=== PATIENT | female | born 1955 | race Two or more races ===

== ENCOUNTER 2016-10-22 07:23 | Inpatient (IN) | payer MEDICARE, MEDICAID ==
[2016-10-22] MEDS ORDERED: IV SET PRIMARY 1 EA INFUS.SET MC ONE (09:24)
[2016-10-22] MEDS ORDERED: IV LR 1000 ML 1,000 ML ONE (09:24)
[2016-10-22] MEDS ORDERED: NEEDLELESS EST SET LARGE BORE 1 EA INFUS.SET MC ONE (09:24)
[2016-10-22] MEDS ORDERED: SECONDARY IV SET 1 EA INFUS.SET MC ONE ×2 (09:24→18:29)
[2016-10-22] MEDS ORDERED: BACL10TA PO (10:25)
[2016-10-22] MEDS ORDERED: INSU100V27 SQ (10:25)
[2016-10-22] MEDS ORDERED: OXYC-128 PO (10:25)
[2016-10-22] MEDS ORDERED: METF500T4 PO (10:25)
[2016-10-22] MEDS ORDERED: LOSA50TA21 PO (10:25)
[2016-10-22] MEDS ORDERED: AMLO5TAB4 PO (10:25)
[2016-10-22] MEDS ORDERED: INSU3INS6 SUBCUT (10:25)
[2016-10-22] MEDS ORDERED: KETOROLAC TROMETHAMINE INJ 30 MG/ML VIAL ONE (10:42)
[2016-10-22] MEDS ORDERED: BUPIVACAINE MPF 0.5% W/EPI INJ 30 ML VIAL ONE (10:43)
[2016-10-22] MEDS ORDERED: BACITRACIN 50000 UNITS/VIAL ONE (10:43)
[2016-10-22] MEDS ORDERED: CEFAZOLIN SODIUM/DEXTROSE,ISO 50 ML IV ONE (10:46)
[2016-10-22] MEDS ORDERED: HYDROMORPHONE INJ 2 MG/ML DISP.SYRIN ONE ×2 (10:53→12:45)
[2016-10-22] MEDS ORDERED: FENTANYL PF 100MCG/2ML AMPUL ONE (10:53)
[2016-10-22] MEDS ORDERED: TRANEXAMIC ACID 3,000 MG in SODIUM CHLORIDE IRRIG SOLUTION 70 ML IR ONE ×2 (11:00→11:30)
[2016-10-22] MEDS ORDERED: IV 1/2NS 1000 ML 1,000 ML IV PRN (13:30)
[2016-10-22] MEDS ORDERED: COLACE 250 MG CAPSULE PO PRN (13:30)
[2016-10-22] MEDS ORDERED: SENOKOT 8.6 MG TABLET PO PRN (13:30)
[2016-10-22] MEDS ORDERED: ZOFRAN 4mg/2ML IV PRN (13:30)
[2016-10-22] MEDS ORDERED: HYDROMORPHONE 1 MG/1 ML DISP.SYRIN IV PRN (13:30)
[2016-10-22] MEDS ORDERED: TYLENOL 650 MG TABLET PO PRN (13:30)
[2016-10-22] MEDS ORDERED: DULCOLAX 10 MG/SUPP.RECT RC PRN (13:30)
[2016-10-22] MEDS ORDERED: AMBIEN 5 MG TABLET PO PRN (13:30)
[2016-10-22] MEDS ORDERED: HYDROCODONE/APAP 5/325MG 1 EACH TABLET PO PRN ×2 (13:30)
[2016-10-22] MEDS ORDERED: MAGNESIUM HYDROXIDE 30 ML UDC PO PRN (16:30)
[2016-10-22] MEDS ORDERED: CLONIDINE HCL 0.1 MG TABLET PO PRN (16:30)
[2016-10-22] MEDS ORDERED: MAG HYDROX/AL HYDROX/SIMETH 30 ML UDC PO PRN (16:30)
[2016-10-22] MEDS ORDERED: HYDROMORPHONE 1 MG/1 ML DISP.SYRIN SQ PRN (16:30)
[2016-10-22] MEDS ORDERED: BACLOFEN (10 MG) 10 MG TABLET PO PRN (16:30)
[2016-10-22] MEDS: DOCUSATE SODIUM 100 MG CAPSULE PO SCH (16:58)
[2016-10-22] MEDS ORDERED: DEXTROSE 50%-WATER 50 ML DISP.SYRIN IV PRN (17:30)
[2016-10-22] MEDS ORDERED: BLOOD SUGAR DIAGNOSTIC 1 EACH STRIP IN SCH (17:30)
[2016-10-22] MEDS: oxyCODONE IR immediate release 5 MG CAPSULE PO PRN (18:12)
[2016-10-22] MEDS: BLOOD SUGAR DIAGNOSTIC 1 EACH STRIP VI SCH ×2 (18:34→21:28)
[2016-10-22] MEDS: ANCEF 1 G in IV D5W 50 ML IV SCH (18:39)
[2016-10-22] MEDS: *INSULIN REGULAR(HUMULIN R)HUM 100 UNIT/ML VIAL SQ PRN ×2 (18:43→21:27)
[2016-10-22] MEDS: INSULIN DETEMIR 100 UNIT/ML CARTRIDGE SQ SCH (18:44)
[2016-10-22] MEDS: PANTOPRAZOLE 40 MG TABLET.DR PO SCH (21:28)
[2016-10-23] MEDS: ANCEF 1 G in IV D5W 50 ML IV SCH (03:35)
[2016-10-23] MEDS: oxyCODONE IR immediate release 5 MG CAPSULE PO PRN ×3 (06:47→16:47)
[2016-10-23] MEDS: INSULIN REGULAR, HUMAN 100 UNIT/ML 3 ML VIAL SQ PRN ×3 (06:57→16:49)
[2016-10-23] MEDS: BLOOD SUGAR DIAGNOSTIC 1 EACH STRIP VI SCH ×4 (06:59→21:24)
[2016-10-23] MEDS: AMLODIPINE BESYLATE 5 MG TABLET PO SCH (08:39)
[2016-10-23] MEDS: LOSARTAN POTASSIUM 50 MG TABLET PO SCH (08:39)
[2016-10-23] MEDS: DOCUSATE SODIUM 100 MG CAPSULE PO SCH ×2 (08:39→16:47)
[2016-10-23] MEDS: ASPIRIN 325 MG TABLET PO SCH (08:39)
[2016-10-23] MEDS ORDERED: BACLOFEN (10 MG) 10 MG TABLET PO SCH (09:00)
[2016-10-23] MEDS: INSULIN DETEMIR 100 UNIT/ML CARTRIDGE SQ SCH (16:49)
[2016-10-23] MEDS: PANTOPRAZOLE 40 MG TABLET.DR PO SCH (21:07)
[2016-10-23] MEDS: *INSULIN REGULAR(HUMULIN R)HUM 100 UNIT/ML VIAL SQ PRN (21:32)
[2016-10-24] MEDS: oxyCODONE IR immediate release 5 MG CAPSULE PO PRN ×4 (00:32→16:27)
[2016-10-24] MEDS: BLOOD SUGAR DIAGNOSTIC 1 EACH STRIP VI SCH ×3 (06:32→17:55)
[2016-10-24] MEDS: INSULIN REGULAR, HUMAN 100 UNIT/ML 3 ML VIAL SQ PRN ×2 (06:32→12:15)
[2016-10-24] MEDS: DOCUSATE SODIUM 100 MG CAPSULE PO SCH ×2 (09:42→17:52)
[2016-10-24] MEDS: ASPIRIN 325 MG TABLET PO SCH (09:42)
[2016-10-24] MEDS: LOSARTAN POTASSIUM 50 MG TABLET PO SCH (09:43)
[2016-10-24] MEDS: AMLODIPINE BESYLATE 5 MG TABLET PO SCH (09:43)
[2016-10-24] MEDS: *INSULIN REGULAR(HUMULIN R)HUM 100 UNIT/ML VIAL SQ PRN (17:54)
[2016-10-24] MEDS: INSULIN DETEMIR 100 UNIT/ML CARTRIDGE SQ SCH (17:56)
== END 2016-10-24 18:00 | disposition home or self-care (01) | DRG 469 ==
DX: M17.11 Unilateral primary osteoarthritis, right knee (principal); E43 Unspecified severe protein-calorie malnutrition; E11.9 Type 2 diabetes mellitus without complications; I10 Essential (primary) hypertension; D72.829 Elevated white blood cell count, unspecified; E66.01 Morbid (severe) obesity due to excess calories; G89.4 Chronic pain syndrome; K21.9 Gastro-esophageal reflux disease without esophagitis; Z68.39 Body mass index [BMI] 39.0-39.9, adult; Z86.19 Personal history of other infectious and parasitic diseases; I70.90 Unspecified atherosclerosis